=== PATIENT | female | born 1975 | race African-American/Black ===

== ENCOUNTER 2018-02-10 09:53 | Emergency (ER) | payer BC ==
[~2018-02-10] VITALS: Ht 165.1 cm; Wt 88.5 kg
== END 2018-02-10 11:26 | disposition home or self-care (01) ==
LOC: ER 09:53
DX: R05 Cough (principal); J02.9 Acute pharyngitis, unspecified
CPT/HCPCS: 83518; 87070; 99282

== ENCOUNTER 2021-01-19 08:59 | Emergency (ER) | payer BC ==
[~2021-01-19] VITALS: Ht 165.1 cm; Wt 88.5 kg
[2021-01-19] MEDS ORDERED: DIPHENHYDRAMINE HCL INJ 50 MG/ML VIAL IV ONE (09:30)
[2021-01-19] MEDS ORDERED: METOCLOPRAMIDE HCL 10 MG/2ML VIAL IV ONE (09:30)
[2021-01-19] MEDS ORDERED: SODIUM CHLORIDE 0.9% 1000ML 1,000 ML IV SCH (09:30)
== END 2021-01-19 11:06 | disposition home or self-care (01) ==
LOC: ER 09:20
DX: G43.909 Migraine, unspecified, not intractable, without status migrainosus (principal); I10 Essential (primary) hypertension
CPT/HCPCS: 99283; J1200; J2765; J7030

== ENCOUNTER 2022-07-29 08:39 | Emergency (ER) | payer BC, OTHER ==
[~2022-07-29] VITALS: Ht 165.1 cm; Wt 88.5 kg
[2022-07-29] MEDS ORDERED: KETOROLAC TROMETHAMINE 30 MG/ML VIAL IV STA (09:05)
[2022-07-29] MEDS ORDERED: SODIUM CHLORIDE FLUSH 10 ML SYR IV PRN (09:15)
[2022-07-29] MEDS ORDERED: CYCLOBENZAPRINE HCL 10 MG TAB PO ONE (09:15)
[2022-07-29 09:58] LABS: BASOPHILS % 0.6 % (0.0-1.0); EOSINOPHILS # (AUTO) 0.1 (0.0-0.4); EOSINOPHILS % 0.9 % (0.0-6.0); HEMATOCRIT 27.8 % (34.2-44.1); HEMOGLOBIN 8.1 g/dL (12.0-16.0); LYMPHOCYTES # (AUTO) 1.8 (1.0-3.2); MEAN CORPUSCULAR HEMOGLOBIN 20.9 pg (28-32); MEAN CORPUSCULAR HGB CONC 29.1 g/dL (31-35); MEAN CORPUSCULAR VOLUME 71.6 fL (81-99); MONOCYTES # (AUTO) 0.5 (0.2-0.8); MONOCYTES % 7.2 % (4.4-11.3); NEUTROPHILS # (AUTO) 4.3 (2.1-6.9); NEUTROPHILS % 64.1 % (38.7-80.0); PLATELET COUNT 465 x10e3/uL (140-360); RED BLOOD COUNT 3.88 x10e6/uL (3.6-5.1); RED CELL DISTRIBUTION WIDTH 19.3 % (11.7-14.4)
[2022-07-29 10:17] LABS: ALANINE AMINOTRANSFERASE 14 IU/L (0-55); ALBUMIN 3.7 g/dL (3.5-5.0); ALBUMIN/GLOBULIN RATIO 1.1 (0.8-2.0); ALKALINE PHOSPHATASE 50 IU/L (40-150); ANION GAP 12.8 mmol/L (8-16); BLOOD UREA NITROGEN 9 mg/dL (7-26); BUN/CREATININE RATIO 11 (6-25); CALCIUM 8.9 mg/dL (8.4-10.2); CARBON DIOXIDE 25 mmol/L (22-29); CHLORIDE 106 mmol/L (98-107); CREATININE, SERUM 0.84 mg/dL (0.57-1.11); GLUCOSE 108 mg/dL (74-118); POTASSIUM 3.8 mmol/L (3.5-5.1); SODIUM 140 mmol/L (136-145)
[2022-07-29] MEDS ORDERED: CYCLOBENZAPRINE10 MG PO (10:59)
== END 2022-07-29 11:05 | disposition home or self-care (01) ==
LOC: ER 08:42
DX: M54.6 Pain in thoracic spine (principal); M62.830 Muscle spasm of back; R07.89 Other chest pain; I10 Essential (primary) hypertension
CPT/HCPCS: 36415; 71045; 80053; 83880; 84484; 84702; 85025; 94760; 99284; J1885

== ENCOUNTER → 2024-06-25 | Day surgery (SDC) | payer BC, OTHER ==
[~2024-06-25] MED LIST: CRESTOR40 MG PO; CYCLOBENZAPRINE10 MG PO; DEXTROSE 5% 250ML 250 ML IV ONE; HYOSCYAMINE SULFATE 0.5 MG/ML INJ ONE; IRON PO; LIDOCAINE HCL 2% LOCAL INJ 5 ML SDV VIAL INJ ONE; LOSARTAN-HCTZ1 EACH PO; METFORMIN HCL500 MG PO; MIDAZOLAM HCL 2 MG/2 ML VIAL ONE; MOUNJARO7.5 MG/0.5 SC; PROPOFOL IV EMULSION 10 MG/ML 20 ML VIAL ONE
[2024-06-25] MEDS: LACTATED RINGER'S 1,000 ML ONE (14:05)
[2024-06-25 17:25] VITALS: BP 115/75; PULSE 85; RESP 16; TEMP 97.8; O2SAT 98
== END | disposition home or self-care (01) ==
LOC: OR 13:30
PROVIDERS: ATTEND Internal Medicine Gastroenterology
DX: Z12.11 Encounter for screening for malignant neoplasm of colon (principal); D12.2 Benign neoplasm of ascending colon; K64.8 Other hemorrhoids; D64.9 Anemia, unspecified; E11.9 Type 2 diabetes mellitus without complications; I10 Essential (primary) hypertension; E78.5 Hyperlipidemia, unspecified; Z88.6 Allergy status to analgesic agent; Z79.84 Long term (current) use of oral hypoglycemic drugs; Z79.85 Long-term (current) use of injectable non-insulin antidiabetic drugs; Z79.899 Other long term (current) drug therapy
CPT/HCPCS: 36415; 45385; 81025; 82948; J1980; J2003; J2250; J2704; J7121; 45378